=== PATIENT | male | born 1965 | race Hispanic/Latino ===

== ENCOUNTER 2020-10-01 15:09 | Emergency (ER) | payer OTHER ==
[~2020-10-01] VITALS: Ht 175.3 cm; Wt 88.5 kg
[2020-10-01] MEDS ORDERED: DOXYCYCLINE HY100 MG PO (16:18)
== END 2020-10-01 16:11 | disposition home or self-care (01) ==
LOC: FSED 16:11
DX: S61.412A Laceration without foreign body of left hand, initial encounter (principal); W26.0XXA Contact with knife, initial encounter; Y92.832 Beach as the place of occurrence of the external cause
CPT/HCPCS: 99283